=== PATIENT | female | born 1955 | race African-American/Black ===

== ENCOUNTER 2021-02-14 19:42 | Emergency (ER) | payer MEDICAID, OTHER ==
[~2021-02-14] VITALS: Ht 182.9 cm; Wt 89.0 kg
[~2021-02-14 19:42] MED LIST: [UNRECOGNIZED DRUG - REMARK]
[2021-02-15] MEDS ORDERED: ALBU6.7H9 INH (00:27)
[2021-02-15] MEDS ORDERED: DOXY150T9 MT (00:27)
[2021-02-15 00:36] VITALS: BP 162/89
== END 2021-02-15 00:37 | disposition home or self-care (01) ==
LOC: ER 19:42
DX: J02.9 Acute pharyngitis, unspecified (principal); J45.909 Unspecified asthma, uncomplicated; I10 Essential (primary) hypertension; Z90.710 Acquired absence of both cervix and uterus
CPT/HCPCS: 99282